=== PATIENT | male | born 2000 | race African-American/Black ===

== ENCOUNTER 2022-07-09 11:08 | Emergency (ER) | payer OTHER ==
[2022-07-09 11:47] LABS: Absolute Lymphocytes (CBC) 2.8 K/uL (0.7-4.9); MCV 91.1 fL (80-100); MPV 7.9 fL (7.6-11.3); RBC Red Blood Cell Count 4.71 M/uL (4.33-5.43)
[2022-07-09 12:05] LABS: Albumin 3.5 g/dL (3.4-5.0); Bilirubin Total 0.2 mg/dL (0.2-1.0); Protein, Total 8.3 g/dL (6.4-8.2)
--- NOTE | 2022-07-09 12:13 | RAD REPORT ---
EXAM DESCRIPTION: US - Extremity Nonvascular Limited - 07/09/2022 11:59 am CLINICAL HISTORY: Pain, swelling, left thigh. Rule out abscess COMPARISON: None. TECHNIQUE: Real-time sonographic evaluation of the left lower extremity, targeting the area of pain and swelling in the midthigh. FINDINGS: Subcutaneous edematous changes. Superficial visualized veins are patent. No discrete fluid collections or sinus tract. IMPRESSION: No findings to suggest an abnormal fluid collection in the area of clinical concern in t he mid left thigh.
--- NOTE | 2022-07-09 12:22 | RAD REPORT ---
EXAM DESCRIPTION: US - Extremity Venous Uni Ltd - 07/09/2022 11:59 am CLINICAL HISTORY: Pain, swelling COMPARISON: None. TECHNIQUE: Real-time sonographic evaluation of the left lower extremity deep venous system was perfo rmed. FINDINGS: Normal compressibility, flow augmentation, phasic flow and spontaneous flow is identified in the left lower extremity deep venous system. No intraluminal filling defects seen. IMPRESSION: No DVT in the left lower extremity.
--- NOTE | 2022-07-09 13:19 | ER ---
Nurse's Notes [facility] Name: Rosibel Peralta Age: 21 yrs Sex: Male : 2000 Arrival Date: 07/09/2022 Time: 11:08 Bed 2 Private MD: Diagnosis: Cellulitis of left lower limb Presentation: 07/09 11:10 Chief complaint: Patient states: LEFT INNER THIGH REDNESS AND INDURATION SINCE WAKING. bp Coronavirus screen: At this time, the client does not indicate any symptoms associated with coronavirus-19. Ebola Screen: No symptoms or risks identified at this time. Initial Sepsis Screen: Does the patient meet any 2 criteria? No. Patient's initial sepsis screen is negative. Does the patient have a suspected source of infection? Yes:. Risk Assessment: Do you want to hurt yourself or someone else? Patient reports no desire to harm self or others. Onset of symptoms was July 09, 2022. 11:10 Method Of Arrival: [employer] Enforcement: [place] [employer] bp 11:10 Acuity: PORFIRIO 3 bp Triage Assessment: 11:37 General: Appears uncomfortable, Behavior is appropriate for age. Pain: Complains of bp pain in left leg. EENT: No deficits noted. Neuro: No deficits noted. Cardiovascular: No deficits noted. Respiratory: No deficits noted. GI: No signs and/or symptoms were reported involving the gastrointestinal system. : No signs and/or symptoms were reported regarding the genitourinary system. Derm: Skin is red. Musculoskeletal: No deficits noted. Historical: - Allergies: 11:37 No Known Allergies; bp - Home Meds: 11:37 None [Active]; bp - PMHx: 11:37 None; bp - Immunization history:: Adult Immunizations up to date. - Social history:: Smoking status: Patient denies any tobacco usage or history of. Screenin:10 [facility] ED Fall Risk Assessment (Adult) History of falling in the last 3 months, bp including since admission No falls in past 3 months (0 pts). Abuse screen: Denies threats or abuse. Denies injuries from another. Nutritional screening: No deficits noted. Tuberculosis screening: No symptoms or risk factors identified. Assessment: 11:10 General: SEE TRIAGE NOTE. bp 12:24 Reassessment: US COMPLETED. bp Vital Signs: 11:10 BP 115 / 68; Pulse 55; Resp 16; Temp 98; Pulse Ox 100% ; bp 12:24 BP 133 / 78; Pulse 55; Resp 16; Pulse Ox 100% ; bp 13:41 BP 127 / 73; Pulse 56; Resp 18; Temp 97.2; Pulse Ox 100% on R/A; ph ED Course: 11:09 Patient arrived in ED. kb 11:10 Mitali Gong FNP-C [facility]. kb 11:10 Jace Maldonado DO is Attending Physician. kb 11:10 Patient has correct armband on for positive identification. Bed in low position. Call bp light in reach. Side rails up X2. Adult w/ patient. Security at bedside. 11:15 Mark Wasserman, RN is Primary Nurse. bp 11:30 Inserted saline lock: 20 gauge in right antecubital area, using aseptic technique. bp Blood collected. 11:37 Triage completed. bp 11:38 Arm band placed on. bp 12:01 US Extremity Venous Unilateral Ltd In Process Unspecified. EDMS 12:01 US Extrmty Nonvasular Limited In Process Unspecified. EDMS 13:41 No provider procedures requiring assistance completed. IV discontinued, intact, ph bleeding controlled, No redness/swelling at site. Pressure dressing applied. 16:00 connected the hospitalist irrigation teacher for [facility] with Dr. Maldonado for patient transfer eb consultation. Administered Medications: 13:40 Drug: Trimethoprim-Sulfamethoxazole PO (160 mg-800 mg (DS) 1 tablet Route: PO; ph 13:40 Follow up: Response: No adverse reaction ph 13:40 Drug: Cephalexin PO 500 mg Route: PO; ph 13:40 Follow up: Response: No adverse reaction ph Medication: 11:10 VIS not applicable for this client. bp Outcome: 13:18 Discharge ordered by . kb 13:41 Discharged to Law Enforcement ph 13:41 Condition: good 13:41 Discharge instructions given to patient, [employer] guards Instructed on discharge instructions, follow up and referral plans. medication usage, Demonstrated understanding of instructions, follow-up care, medications, Prescriptions given X 2. 13:43 Patient left the ED. ph Signatures: Dispatcher [employer] EDMS Mitali Gong FNP-C FNP-Dana Aguilera RN RN ph Mark Wasserman, RN RN bp Kylie Quispe
--- NOTE | 2022-07-09 13:19 | EDPHYS ---
Physician Documentation [facility] Name: Rosibel Peralta Age: 21 yrs Sex: Male : 2000 Arrival Date: 07/09/2022 Time: 11:08 Bed 2 Private MD: ED Physician Jace Maldonado HPI: 07/09 13:15 This 21 yrs old Black Male presents to ER via Law Enforcement with complaints of kb cellulitis. 13:15 The patient presents with cellulitis of the medial aspect of left thigh. Description: kb erythematous, hot, swollen. Onset: The symptoms/episode began/occurred 2 day(s) ago. Possible cause(s): unknown. Associated signs and symptoms: Pertinent positives: erythema, swelling, Pertinent negatives: discharge, drainage, foreign body sensation, fever, headache, nausea, shortness of breath, vomiting. Modifying factors: the symptoms are alleviated by nothing, the symptoms are aggravated by movement. Severity of symptoms: At their worst the symptoms were moderate, in the emergency department the symptoms are unchanged. The patient has not experienced similar symptoms in the past. The patient has not recently seen a physician. Pt reports he woke up with redness, swelling and warmth to left thigh 2 days ago. Reports chills. . Historical: - Allergies: 11:37 No Known Allergies; bp - Home Meds: 11:37 None [Active]; bp - PMHx: 11:37 None; bp - Immunization history:: Adult Immunizations up to date. - Social history:: Smoking status: Patient denies any tobacco usage or history of. ROS: 13:15 Constitutional: Negative for fever, chills, and weight loss. kb 13:15 Skin: Positive for cellulitis, erythema, swelling, of the medial aspect of left thigh. 13:15 All other systems are negative. Exam: 13:15 Constitutional: This is a well developed, well nourished patient who is awake, alert, kb and in no acute distress. Head/Face: Normocephalic, atraumatic. ENT: Moist Mucous membranes Cardiovascular: Regular rate and rhythm with a normal S1 and S2. No gallops, murmurs, or rubs. No pulse deficits. Respiratory: Respirations even and unlabored. No increased work of breathing. Talking in full sentences Abdomen/GI: Soft, non-tender. No distention MS/ Extremity: Pulses equal, no cyanosis. Neurovascular intact. Full, normal range of motion. Neuro: Awake and alert, GCS 15, oriented to person, place, time, and situation. Moves all extremities. Normal gait. 13:15 Skin: cellulitis, that is moderate, on the medial aspect of left thigh. Vital Signs: 11:10 BP 115 / 68; Pulse 55; Resp 16; Temp 98; Pulse Ox 100% ; bp 12:24 BP 133 / 78; Pulse 55; Resp 16; Pulse Ox 100% ; bp 13:41 BP 127 / 73; Pulse 56; Resp 18; Temp 97.2; Pulse Ox 100% on R/A; ph MDM: 11:10 Patient medically screened. kb 13:15 Differential diagnosis: abscess, allergic reaction, cellulitis, insect bite. Data kb reviewed: vital signs, nurses notes. Historians other than the Patient: [facility]. Counseling: I had a detailed discussion with the patient and/or guardian regarding: the historical points, exam findings, and any diagnostic results supporting the discharge/admit diagnosis, lab results, radiology results, the need for outpatient follow up, a family practitioner, to return to the emergency department if symptoms worsen or persist or if there are any questions or concerns that arise at home. 07/09 11:11 Order name: Blood Culture Adult (2) kb 07/09 11:11 Order name: CBC with Diff; Complete Time: 12:19 kb 07/09 11:11 Order name: CMP; Complete Time: 12:19 kb 07/09 11:11 Order name: Lactate w/ 2H reflex if indic.; Complete Time: 12:19 kb 07/09 11:11 Order name: Extremity Venous Unilateral Ltd; Complete Time: 12:31 kb 07/09 11:11 Order name: Extrmty Nonvasular Limited; Complete Time: 12:19 kb 07/09 11:11 Order name: IV Saline Lock - Large Bore; Complete Time: 11:39 kb 07/09 11:11 Order name: Labs collected and sent; Complete Time: 11:39 kb 07/09 11:11 Order name: Vital Signs; Complete Time: 11:39 kb Administered Medications: 13:40 Drug: Trimethoprim-Sulfamethoxazole PO (160 mg-800 mg (DS) 1 tablet Route: PO; ph 13:40 Follow up: Response: No adverse reaction ph 13:40 Drug: Cephalexin PO 500 mg Route: PO; ph 13:40 Follow up: Response: No adverse reaction ph Disposition: 13:30 Co-signature as Attending Physician, Jace SHERMAN was immediately available on-site ms3 in the Emergency Department for consultation in the care of the patient. Disposition Summary: 07/09/22 13:18 Discharge Ordered Location: Home kb Condition: Stable kb Diagnosis - Cellulitis of left lower limb kb Followup: kb - With: Emergency Department - When: As needed - Reason: Worsening of condition Followup: kb - With: Private Physician - When: 2 - 3 days - Reason: Recheck today's complaints, Continuance of care, Re-evaluation by your physician Discharge Instructions: - Discharge Summary Sheet kb - Cellulitis, Adult, [id number] kb Forms: - Medication Reconciliation Form kb - Thank You Letter kb - Antibiotic Education kb - Prescription Opioid Use kb Prescriptions: - Cephalexin 500 mg Oral Capsule - take 1 capsule by ORAL route every 8 hours for 10 days; 30 capsule; Refills: 0, kb Product Selection Permitted - Bactrim DS 800-160 mg Oral Tablet - take 1 tablet by ORAL route every 12 hours for 10 days; 20 tablet; Refills: 0, kb Product Selection Permitted Signatures: Dispatcher [employer] Mitali Marc, KAL LOPEZ-Dana Aguilera, RN RN Mark Laura RN Jace Crabtree DO DO ms3
[2022-07-09] MEDS ORDERED: CEPHALEXIN 250 MG CAP ONE (13:46)
[2022-07-09 13:47] VITALS: O2SAT 100
[2022-07-09] MEDS ORDERED: SMZ./TMP. 800/160 MG TABLET ONE (13:47)
[2022-07-09 13:49] VITALS: BP 127/73; TEMP 97.2
== END 2022-07-09 13:43 | disposition home or self-care (01) ==
LOC: ER 11:08
DX: L03.116 Cellulitis of left lower limb (principal)
CPT/HCPCS: 36415; 76882; 80053; 83605; 85025; 87040; 93971